=== PATIENT | male | born 1945 | race Caucasian/White ===

== ENCOUNTER 2018-01-21 14:24 | Observation (INO) | payer MEDICARE ==
[~2018-01-21] VITALS: Ht 182.9 cm; Wt 94.3 kg
[2018-01-21] MEDS ORDERED: SODIUM CHLORIDE 0.9% 500ML 500 ML IV STA ×2 (14:53→17:34)
[2018-01-21] MEDS ORDERED: SODIUM CHLORIDE 0.9% 250ML 500 ML ONE (15:36)
[2018-01-21 15:52] LABS: BASOPHILS % 0.3 % (0.0-1.0); EOSINOPHILS # (AUTO) 0.2 (0.0-0.4); EOSINOPHILS % 1.2 % (0.0-6.0); HEMATOCRIT 34.7 % (38.2-49.6); HEMOGLOBIN 11.1 g/dL (14.0-18.0); LYMPHOCYTES # (AUTO) 2.2 (1.0-3.2); LYMPHOCYTES % 18.4 % (18.0-39.1); MEAN CORPUSCULAR HEMOGLOBIN 28.2 pg (28-32); MEAN CORPUSCULAR VOLUME 88.1 fL (81-99); MONOCYTES # (AUTO) 0.8 (0.2-0.8); MONOCYTES % 6.5 % (4.4-11.3); NEUTROPHILS # (AUTO) 8.8 (2.1-6.9); NEUTROPHILS % 73.1 % (38.7-80.0); PLATELET COUNT 337 x10e3/uL (140-360); RED BLOOD COUNT 3.94 x10e6/uL (4.3-5.7); RED CELL DISTRIBUTION WIDTH 15.7 % (11.7-14.4)
[2018-01-21 16:09] LABS: ALANINE AMINOTRANSFERASE 14 IU/L (0-55); ALBUMIN 3.4 g/dL (3.5-5.0); ALKALINE PHOSPHATASE 54 IU/L (40-150); ANION GAP 13.5 mmol/L (8-16); BLOOD UREA NITROGEN 27 mg/dL (7-26); BUN/CREATININE RATIO 16 (6-25); CALCIUM 9.2 mg/dL (8.4-10.2); CARBON DIOXIDE 24 mmol/L (22-29); CHLORIDE 103 mmol/L (98-107); CREATINE KINASE 235 IU/L (30-200); CREATININE, SERUM 1.64 mg/dL (0.72-1.25); EST GLOMERULAR FILTRATION RATE 42 ML/MIN (60-); GLUCOSE 88 mg/dL (74-118); POTASSIUM 4.5 mmol/L (3.5-5.1); SODIUM 136 mmol/L (136-145)
--- NOTE | 2018-01-21 17:38 | Diagnostic Imaging Report ---
Examination: CT head without contrast Clinical Indication: Dizziness. Technique: Transaxial noncontrast images from the skull base through the vertex were obtained. Sagittal and coronal reformatted images were done. Comparison: None. Findings: Scalp: No abnormalities. Bones: Intact. No fractures. No blastic or lytic lesions. Brain sulci: Appropriate for patient's age. Ventricles: Normal in size and configuration. No hydrocephalus. . Extra-axial space: No abnormalities. Parenchyma: There are subtle confluent areas of low-attenuation within subcortical and periventricular white matter, nonspecific, but could represent microvascular ischemic disease. No masses, hemorrhage, or acute or chronic cortical based vascular insults. Suprasellar region: No abnormalities. Craniocervical junction: The foramen magnum is patent. No Chiari one malformation. Incidental findings: Atherosclerotic calcification of the cavernous and supraclinoid internal carotid and V4 segments of the bilateral vertebral arteries. Impression: 1. No acute intracranial finding. 2. Mild chronic microvascular ischemic change. Signed by: Dr. Randi Cerrato M.D. on 01/21/2018 5:35 PM
[2018-01-21] MEDS ORDERED: MECLIZINE HCL 12.5 MG TAB PO ONE (17:45)
[2018-01-21] MEDS ORDERED: ONDANSETRON HCL INJ 2 MG/ML VIAL IV PRN (19:30)
[2018-01-21] MEDS ORDERED: NITROGLYCERIN 0.4 MG SUBL SL PRN (19:30)
[2018-01-21] MEDS ORDERED: MORPHINE SULFATE 2 MG/ML SYR IV PRN (19:30)
[2018-01-21] MEDS ORDERED: ONDANSETRON HCL 4 MG ORAL DISINTEGRATING TAB PO PRN (19:45)
--- OUTSIDE RECORDS SUMMARY | 2018-01-21 20:30 | XMS REPORT ---
Author Author [facility] Address Unknown Phone Unavailable Care Team Providers Care Lining Ironer Name Role Phone LISA JESUS Unavailable Unavailable Problems This patient has no known problems. Allergies, Adverse Reactions, Alerts This patient has no known allergies or adverse reactions. Medications This patient has no known medications. Results Test Description Test Time Test Comments Text Results Atomic Results Result Comments CT BRAIN WO [address] [address] Patient Name: MARIA GUADALUPE WOODY MR #: [id number] : 1945 Age/Sex: 72/M Req #: [id number] Adm Physician: Ordered by: JANIS BARNETT MOTEL KEEPER Report #: [id number] Location: ER Room/Bed: Procedure: [id number] CT/CT BRAIN WO Exam Date: 01/21/18 Exam Time: 1634 REPORT STATUS: Signed Examination: CT head without contrast Clinical Indication: Dizziness. Technique: Transaxial noncontrast images from the skull base through the vertex were obtained. Sagittal and coronal reformatted images were done. Comparison: None. Findings: Scalp: No abnormalities. Bones: Intact. No fractures. No blastic or lytic lesions. Brain sulci: Appropriate for patient's age. Ventricles: Normal in size and configuration. No hydrocephalus. . Extra-axial space: No abnormalities. Parenchyma: There are subtle confluent areas of low- attenuation within subcortical and periventricular white matter, nonspecific, but could represent microvascular ischemic disease. No masses, hemorrhage, or acute or chronic cortical based vascular insults. Suprasellar region: No abnormalities. Craniocervical junction: The foramen magnum is patent. No Chiari one malformation. Incidental findings: Atherosclerotic calcification of the cavernous and supraclinoid internal carotid and V4 segments of the bilateral vertebral arteries. Impression: 1. No acute intracranial finding. 2. Mild chronic microvascular ischemic change. Signed by: Dr. Randi Cerrato M.D. on 01/21/2018 5:35 PM Dictated By: RANDI LATIF MD [id number] Transcribed By: RONEL on 01/21/18 1737 COPY TO: JANIS BARNETT NP
[2018-01-21] MEDS: FAMOTIDINE 20 MG TAB PO SCH (20:54)
[2018-01-22] VITALS (9 sets, daily range): BP systolic 109–169; BP diastolic 67–96
[2018-01-22 01:52] LABS: CREATINE KINASE 182 IU/L (30-200)
[2018-01-22 06:53] LABS: BASOPHILS # (AUTO) 0.1 (0.0-0.1); BASOPHILS % 0.4 % (0.0-1.0); EOSINOPHILS # (AUTO) 0.2 (0.0-0.4); HEMATOCRIT 33.4 % (38.2-49.6); HEMOGLOBIN 10.9 g/dL (14.0-18.0); LYMPHOCYTES % 17.5 % (18.0-39.1); MEAN CORPUSCULAR HEMOGLOBIN 28.7 pg (28-32); MEAN CORPUSCULAR HGB CONC 32.6 g/dL (31-35); MEAN CORPUSCULAR VOLUME 87.9 fL (81-99); MONOCYTES # (AUTO) 0.9 (0.2-0.8); MONOCYTES % 7.5 % (4.4-11.3); NEUTROPHILS # (AUTO) 8.4 (2.1-6.9); NEUTROPHILS % 72.1 % (38.7-80.0); PLATELET COUNT 296 x10e3/uL (140-360); RED CELL DISTRIBUTION WIDTH 15.8 % (11.7-14.4)
[2018-01-22 07:08] LABS: CALCIUM 9.2 mg/dL (8.4-10.2); CHOL/HDL RATIO 3.2 (3.9-4.7); CREATININE, SERUM 1.41 mg/dL (0.72-1.25)
[2018-01-22 07:35] LABS: CREATINE KINASE 167 IU/L (30-200)
[2018-01-22] MEDS: FAMOTIDINE 20 MG TAB PO SCH ×2 (08:08→16:45)
[2018-01-22] MEDS ORDERED: ASPIRIN 81 MG ENTERIC COATED PO SCH (09:00)
[2018-01-22] MEDS ORDERED: ASPIRIN CHEW81 MG PO (09:49)
[2018-01-22] MEDS ORDERED: LISINOPRIL10 MG PO (09:49)
[2018-01-22] MEDS ORDERED: fenofibrate PO (09:49)
[2018-01-22] MEDS ORDERED: CRESTOR20 MG PO (09:49)
[2018-01-22] MEDS ORDERED: METOPROLOL SUCC25 MG PO (09:49)
[2018-01-22] MEDS: SODIUM CHLORIDE 0.9% 1000ML 1,000 ML IV SCH (10:45)
[2018-01-22] MEDS ORDERED: GUAIFENESIN/DEXTROMETHORPHAN LIQD 5 ML UDC PO PRN (11:15)
[2018-01-22 11:20] LABS: FERRITIN 22.03 ng/mL (21.81-274.66)
[2018-01-22] MEDS: METOPROLOL SUCCINATE 25 MG TAB XL PO SCH (12:00)
--- NOTE | 2018-01-22 12:41 | Consultation ---
DATE OF CONSULTATION: January 22, 2018 CARDIOLOGY CONSULTATION ATTENDING PHYSICIAN: Dr. Grijalva Thank you so much for asking me to see this nice man again in consultation. Mr. Lowry is a charming, 72-year-old man known to me from past and previous evaluations. CHIEF COMPLAINT: He presented to the emergency room with a complaint of coughing and "almost passing out." HISTORY OF PRESENT ILLNESS: The patient reports that he has been ill for the last couple of weeks. He saw his family doctor, Dr. Nagy, and was given steroids and antibiotics and a cough medicine, but reports the cough did not go away and now he feels like he might pass out when he coughs. He reports that by the office scales he lost as much as 11 pounds over a 2-week illness but then he thinks he gained about 8 pounds back. He thinks he might not have been eating and drinking as well as before. PAST MEDICAL HISTORY: Significant for prostate cancer treated with radiation therapy. He finished up treatments about 5 years ago and now has annual visits. He has longstanding hypertension and hyperlipidemia. He had cardiac catheterization in 2005 that showed mild calcific 2-vessel coronary artery disease with about 30% stenosis in the right coronary and 30% stenosis with calcium in the LAD, performed February 12, 2006. LV function was normal at that time. He had tonsillectomy at age 6. MEDICATIONS: His recent home medications have been: 1. Crestor 20 mg daily. 2. Fenofibrate 160 mg daily. 3. Metoprolol succinate 25 mg daily. 4. Lisinopril 20 mg daily. 5. Aspirin 81 mg daily. PERSONAL AND SOCIAL HISTORY: Patient continues to smoke, now smoking cigars. He has been smoking since his teenage years. FAMILY HISTORY: Father of prostate cancer. Mother at 69 of myocardial infarction. He has a half-brother that had an UT at age 50. REVIEW OF SYSTEMS: Cardiac: He denies any recent chest pain or palpitations. PHYSICAL EXAMINATION VITALS: Blood pressure 140/80. GENERAL: Exam at this time shows a pleasant, alert man who is comfortable and talkative. HEENT: Relatively unremarkable. NECK: No jugular venous distention. No bruits. THORAX: Heart sounds S1 and S2 are equal. No murmurs. Lungs are clear to exam. ABDOMEN: Protuberant. Liver is palpable below the right sternal border. There is no other organomegaly or bruits. EXTREMITIES: No cyanosis, clubbing or edema. LABS: Initial BUN and creatinine are 27 and 1.64. AST and ALT are normal. Troponins are normal times 3. Albumin is slightly low at 3.4. Hemoglobin is low at 11.1, repeat 10.9. Serum iron is normal. Total cholesterol 161, LDL 86, HDL 51. Vitamin B12 is normal. CAT scan of head suggests possible microvascular changes, but no chest x-ray has been performed. His EKG is unremarkable. ASSESSMENT 1. Cough. 2. Cough syncope or near syncope. 3. Known coronary disease. 4. Hypertension. 5. Hyperlipidemia. 6. History of prostate cancer. 7. Hepatomegaly. PLAN: Will check echocardiogram to exclude pericardial effusion. Await chest x-ray and plan Cardiolite for re-evaluation of coronary disease. Thank for asking me to see him in consultation. Job#: [id number]
--- NOTE | 2018-01-22 16:44 | Diagnostic Imaging Report ---
PROCEDURE: Frontal and lateral views of the chest. COMPARISON: None. INDICATIONS: COUG, BRONCHITIS FINDINGS: Lines/tubes: None. Lungs: The lungs are well inflated and clear. There is no evidence of pneumonia or pulmonary edema. Pleura: There is no pleural effusion or pneumothorax. Heart and mediastinum: The heart and the mediastinum are normal. Bones: No acute bony abnormality. IMPRESSION: 1. No acute cardiopulmonary disease. Dictated by: Lenin Rodriguez M.D. on 01/22/2018 at 16:45 Electronically approved by: Lenin Rodriguez M.D. on 01/22/2018 at 16:45
[2018-01-23] VITALS (7 sets, daily range): BP systolic 95–157; BP diastolic 60–88
[2018-01-23] MEDS: SODIUM CHLORIDE 0.9% 1000ML 1,000 ML IV SCH ×2 (00:41→13:25)
[2018-01-23 06:40] LABS: BASOPHILS % 0.3 % (0.0-1.0); EOSINOPHILS # (AUTO) 0.2 (0.0-0.4); HEMATOCRIT 35.1 % (38.2-49.6); HEMOGLOBIN 11.5 g/dL (14.0-18.0); LYMPHOCYTES # (AUTO) 1.8 (1.0-3.2); MEAN CORPUSCULAR HEMOGLOBIN 28.8 pg (28-32); MEAN CORPUSCULAR HGB CONC 32.8 g/dL (31-35); MONOCYTES # (AUTO) 0.9 (0.2-0.8); MONOCYTES % 7.9 % (4.4-11.3); NEUTROPHILS # (AUTO) 8.9 (2.1-6.9); NEUTROPHILS % 74.5 % (38.7-80.0); PLATELET COUNT 302 x10e3/uL (140-360); RED BLOOD COUNT 3.99 x10e6/uL (4.3-5.7); RED CELL DISTRIBUTION WIDTH 15.7 % (11.7-14.4); RETICULOCYTE % 1.4 % (0.8-2.2)
[2018-01-23 07:06] LABS: ANION GAP 12.4 mmol/L (8-16); BLOOD UREA NITROGEN 18 mg/dL (7-26); BUN/CREATININE RATIO 15 (6-25); CALCIUM 9.5 mg/dL (8.4-10.2); CARBON DIOXIDE 24 mmol/L (22-29); CHLORIDE 105 mmol/L (98-107); CREATININE, SERUM 1.17 mg/dL (0.72-1.25); EST GLOMERULAR FILTRATION RATE > 60 ML/MIN (60-); GLUCOSE 88 mg/dL (74-118); POTASSIUM 4.4 mmol/L (3.5-5.1); SODIUM 137 mmol/L (136-145)
[2018-01-23] MEDS ORDERED: ASPIRIN 81 MG CHEW TAB PO SCH (09:00)
[2018-01-23] MEDS ORDERED: REGADENOSON 0.4 MG/5 ML SYR IV ONE (09:23)
[2018-01-23] MEDS: FAMOTIDINE 20 MG TAB PO SCH ×2 (12:14→16:39)
[2018-01-23] MEDS: METOPROLOL SUCCINATE 25 MG TAB XL PO SCH (12:15)
== END 2018-01-23 18:24 | disposition home or self-care (01) ==
LOC: ER 14:24 → ERHOLD 20:28 → IMCU 01-22 00:35
PROVIDERS: ADMIT Internal Medicine; ATTEND Internal Medicine
DX: R55 Syncope and collapse (principal); R42 Dizziness and giddiness; J40 Bronchitis, not specified as acute or chronic; D64.9 Anemia, unspecified; I25.10 Atherosclerotic heart disease of native coronary artery without angina pectoris; I10 Essential (primary) hypertension; E78.5 Hyperlipidemia, unspecified; Z85.46 Personal history of malignant neoplasm of prostate; R16.0 Hepatomegaly, not elsewhere classified
CPT/HCPCS: 36415 ×3; 70450; 71046; 78452; 80048 ×2; 80053; 80061; 82550 ×2; 82553 ×2; 82607; 82728; 83540; 84466; 84484 ×2; 85025 ×3; 85045; 85379; 93005; 93306; 99284; A9502; G0378 ×3; J7030 ×2; J7040; J7050

== ENCOUNTER → 2018-08-28 | Day surgery (SDC) | payer MEDICARE, OTHER ==
[2018-08-18 15:44] LABS: BASOPHILS % 0.3 % (0.0-1.0); EOSINOPHILS # (AUTO) 0.7 (0.0-0.4); EOSINOPHILS % 5.7 % (0.0-6.0); HEMATOCRIT 31.7 % (38.2-49.6); LYMPHOCYTES # (AUTO) 2.6 (1.0-3.2); LYMPHOCYTES % 22.3 % (18.0-39.1); MEAN CORPUSCULAR HEMOGLOBIN 26.8 pg (28-32); MEAN CORPUSCULAR HGB CONC 31.5 g/dL (31-35); MONOCYTES # (AUTO) 0.8 (0.2-0.8); NEUTROPHILS # (AUTO) 7.4 (2.1-6.9); NEUTROPHILS % 64.4 % (38.7-80.0); PLATELET COUNT 343 x10e3/uL (140-360); RED BLOOD COUNT 3.73 x10e6/uL (4.3-5.7); RED CELL DISTRIBUTION WIDTH 15.5 % (11.7-14.4)
[2018-08-18 16:03] LABS: ANION GAP 13.8 mmol/L (8-16); CALCIUM 9.5 mg/dL (8.4-10.2); CREATININE, SERUM 1.34 mg/dL (0.72-1.25); POTASSIUM 4.8 mmol/L (3.5-5.1)
[~2018-08-28] MED LIST: AMILORIDE HCL5 MG PO; ASPIRIN CHEW81 MG PO; CHONDR SU A NA/HYALUR SOD 1 EACH KIT IO ONE; CRESTOR20 MG PO; CYCLOPENTOLATE HCL 1% OPTH SOLN 2ML BTL ONE; EPINEPHRINE HCL INJ 1 MG/ML AMP ONE; FENTANYL CITRATE/PF 100MCG/2 ML INJ ONE; GATIFLOXACIN(OPTH) 5 ML LIQD ONE; LIDOCAINE 2%/ EPINEPHRINE 20ML MDV ONE; LIDOCAINE HCL-PF 4% 40 MG/1 ML 5ML AMP ONE; LISINOPRIL10 MG PO; METOPROLOL SUCC25 MG PO; MIDAZOLAM HCL 2 MG/2 ML VIAL ONE; PHENYLEPHRINE HCL 2 ML DROPS ONE; PILOCARPINE HCL(OPTH) 15 ML LIQD ONE; POVIDONE IODINE 5% (OPTH) 30 ML BTL ONE; PROPOFOL IV EMULSION 10 MG/ML 20 ML VIAL ONE; TOBRAMYCIN/DEXAMETHASONE(OPTH) 3.5 GM TUBE ONE; fenofibrate PO
--- OUTSIDE RECORDS SUMMARY | 2018-08-28 05:53 | XMS REPORT ---
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
--- OUTSIDE RECORDS SUMMARY | 2018-08-28 05:53 | XMS REPORT ---
Author Author Andrew Ford Organization [employer] Address Unknown Phone Unavailable Care Team Providers Care Chaser Apprentice Name Role Phone Andrew Ford CP Unavailable Allergies, Adverse Reactions, Alerts Substance Reaction Event Type N.K.D.A. 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 Active Assessment CAD without angina I25.10 Active Problem Carotid stenosis 433.10 Active Assessment CHF, chronic systolic & diastolic I50.42 Active Medications Medication Code System Code Instructions Start Date End Date Status Dosage [facility] [address]-80 5 MG Orally Once a day Active 1 tablet Toprol XL [facility] 25250349153 25 Orally Once a day Active 1 tablet Fenofibrate [facility] [address]-13 160 MG Orally Once a day Active 1 tablet with a meal Anne Aspirin EC Low Dose [facility] [address]-96 81 MG Orally Once a day Active 1 tablet Crestor [facility] [address]-54 20 Orally Once a day Active 1 tablet Social History Social History Element Qualifiers Date Reported Tobacco Use: . Are you a: current smoker 1PPD FOR 50 YEARS February 15, 2016 Do you drink alcohol? . Status: Yes, Type: Beer February 15, 2016 Vital Signs Date/Time: February 15, 2016 Blood Pressure Systolic 145 mm Hg Weight 205 lbs Cardiac Monitoring Heart Rate 59 /min Blood Pressure Diastolic 60 mm Hg Summary Purpose [employer] Submission
--- OUTSIDE RECORDS SUMMARY | 2018-08-28 05:53 | XMS REPORT ---
Author Author Andrew Ford [facility] [employer] Address Unknown Phone Unavailable Care Team Providers Care Gut Sorter Name Role Phone Andrew Ford CP Unavailable Allergies, Adverse Reactions, Alerts Substance Reaction Event Type N.K.D.A. Info Not Available Non Drug Allergy Problems Problem Type Condition Code Onset Dates Condition Status Assessment Abnormal ECG R94.31 Active Assessment Occlusion and stenosis of right carotid artery I65.21 Active Assessment CAD without angina I25.10 Active Assessment Hypertensive heart disease with heart failure I11.0 Active Problem Abnormal ECG R94.31 Active Problem Occlusion and stenosis of right carotid artery I65.21 Active Problem Hypertensive heart disease with heart failure I11.0 Active Problem Carotid stenosis 433.10 Active Assessment CHF, chronic systolic & diastolic I50.42 Active Problem CAD without angina I25.10 Active Problem CHF, chronic systolic & diastolic I50.42 Active Medications Medication Code System Code Instructions Start Date End Date Status Dosage Metoprolol Succinate ER [facility] 46217425552 25 MG Orally Once a day Active 1 tablet Lisinopril [facility] 03145985624 20 mg Orally Once a day Aug 05, 2017 Active 1 tablet Toprol XL [facility] 10088900294 25 Orally Once a day Active 1 tablet Lisinopril [facility] 21735620523 5 Active TAKE 1 TABLET BY MOUTH ONCE DAILY Fenofibrate ND 44128000145 160 MG Orally Once a day Active 1 tablet with a meal Lisinopril ND 14080908005 10 MG Orally Once a day Aug 07, 2016 Inactive 1 tablet Rosuvastatin Calcium ND 69593372448 20 MG Orally Once a day Active 1 tablet Crestor [facility] [address]-62 20 Orally Once a day Active 1 tablet Aspirin ND 61806710258 81 MG Orally Once a day Active 1 tablet Lisinopril ND 05328777979 10 MG Orally Once a day Inactive 1 tablet Vital Signs Date/Time: Aug 05, 2017 BMI 27.94 Index Weight 206 lbs Height 6ft 0in in Cardiac Monitoring Heart Rate 64 /min Blood Pressure Diastolic 87 mm Hg Blood Pressure Systolic 150 mm Hg Results No Known Results Summary Purpose [employer] Submission
--- OUTSIDE RECORDS SUMMARY | 2018-08-28 05:53 | XMS REPORT | Continuity of Care Document ---
Author Author [facility] Interface Address Unknown Phone Unavailable Problems Problem Status Onset Date Classification Date Reported Comments Source CHF, chronic systolic & diastolic Active Diagnosis 10/16/2017 Nathan Haley MD, [place] Occlusion and stenosis of right carotid artery Active Diagnosis 10/16/2017 Nathan Haley MD, ROXANA Abnormal ECG Active Diagnosis 10/16/2017 Nathan Haley MD, PA CAD without angina Active Diagnosis 10/16/2017 Nathan Haley MD, PA Carotid stenosis Active Problem 10/16/2017 Nathan Haley MD, ROXANA Hypertensive heart disease with heart failure Active Diagnosis 10/16/2017 Nathan Haley MD, PA Pure hypercholesterolemia Active Diagnosis 10/18/2016 Nathan Haley MD, PA Cardiomyopathy, unspecified Active Diagnosis 10/18/2016 Nathan Haley MD, PA Medications Medication Details Route Status Patient Instructions Ordering Provider Order Date Source Lisinopril 10 Mg Tablet, 20 Mg Oral Daily Active 01/23/2018 [facility] Lisinopril 1 tablet Orally Active 20 mg Orally Once a day 08/05/2017 Nathan Haley MD, ROXANA Anne Aspirin EC Low Dose 1 tablet Orally Active 81 MG Orally Once a day 08/02/2017 Nathan Haley MD, ROXANA Lisinopril 1 tablet Orally Active 10 MG Orally Once a day Ne 08/07/2016 Nathan Haley MD, ROXANA Lisinopril 1 tablet Orally Active 10 MG Orally Once a day 08/07/2016 Nathan Haley MD, ROX[place] Metoprolol Succinate ER 1 tablet Orally Active 25 MG Orally Once a day Liliana Haley MD, PA Toprol XL 1 tablet Orally Active 25 Orally Once a day Liliana Haley MD, PA Lisinopril TAKE 1 TABLET BY MOUTH ONCE DAILY NA Active 5 Liliana Haley MD, PA Fenofibrate 1 tablet with a meal Orally Active 160 MG Orally Once a day Liliana Haley MD, PA Rosuvastatin Calcium 1 tablet Orally Active 20 MG Orally Once a day Liliana Haley MD, PA Crestor 1 tablet Orally Active 20 Orally Once a day Liliana Haley MD, PA Aspirin 1 tablet Orally Active 81 MG Orally Once a day Liliaan Haley MD, PA Lisinopril 1 tablet Orally Active 10 MG Orally Once a day Liliana Haley MD, PA Lisinopril 1 tablet Orally Active 5 MG Orally Once a day Liliana Haley MD, PA Fenofibrate 1 tablet with a meal Orally Active 160 MG Orally Once a day Liliana Haley MD, PA Anne Aspirin EC Low Dose 1 tablet Orally Active 81 MG Orally Once a day Liliana Haley MD, PA Metoprolol Succinate ER 1 tablet Orally Active 25 MG Orally Once a day Liliana Haley MD, PA Aspirin (Aspirin Chew) 81 Mg Chew Daily Active [facility] Fenofibrate Bedtime Active [facility] Metoprolol Succinate 25 Mg Tab.er.24h Daily Active [facility] Rosuvastatin Calcium (Crestor) 20 Mg Tablet Bedtime Active [facility] Allergies, Adverse Reactions, Alerts Substance Category Reaction Severity Reaction type Status Date Reported Comments Source N.K.D.A. Adverse Reaction Info Not Available Adverse Reaction Active 08/05/2017 Nathan Haley MD, PA Immunizations Immunization Date Given Site Status Last Updated Comments Source Results Order Name Results Value Reference Range Date Interpretation Comments Source Automated blood basophil count (count/volume) Automated blood basophil count (count/volume) 0.0 0.0 - 0.1 01/23/2018 [facility] Automated blood basophil count as percentage of total leukocytes Automated blood basophil count as percentage of total leukocytes 0.3 0.0 - 1.0 01/23/2018 [facility] Automated blood eosinophil count Automated blood eosinophil count 0.2 0.0 - 0.4 01/23/2018 [facility] Automated blood eosinophil count as percentage of total leukocytes Automated blood eosinophil count as percentage of total leukocytes 2.0 0.0 - 6.0 01/23/2018 [facility] Automated blood hematocrit (volume fraction) Automated blood hematocrit (volume fraction) 35.1 38.2 - 49.6 01/23/2018 [facility] Automated blood lymphocyte count as percentage ot total leukocytes Automated blood lymphocyte count as percentage ot total leukocytes 15.0 18.0 - 39.1 01/23/2018 [facility] Automated blood monocyte count as percentage of total leukocytes Automated blood monocyte count as percentage of total leukocytes 7.9 4.4 - 11.3 01/23/2018 [facility] Automated blood neutrophil count Automated blood neutrophil count 8.9 2.1 - 6.9 01/23/2018 [facility] Automated blood platelet count (count/volume) Automated blood platelet count (count/volume) 302 140 - 360 01/23/2018 [facility] Automated blood segmented neutrophil count as percentage of total leukocytes Automated blood segmented neutrophil count as percentage of total leukocytes 74.5 38.7 - 80.0 01/23/2018 [facility] Automated erythrocyte mean corpuscular hemoglobin (mass per erythrocyte) Automated erythrocyte mean corpuscular hemoglobin (mass per erythrocyte) 28.8 28 - 32 01/23/2018 [facility] Automated erythrocyte mean corpuscular hemoglobin concentration measurement (mass/volume) Automated erythrocyte mean corpuscular hemoglobin concentration measurement (mass/volume) 32.8 31 - 35 01/23/2018 [facility] Automated erythrocyte mean corpuscular volume Automated erythrocyte mean corpuscular volume 88.0 81 - 99 01/23/2018 [facility] Automated reticulocyte count as percentage of total erythrocytes Automated reticulocyte count as percentage of total erythrocytes 1.4 0.8 - 2.2 01/23/2018 [facility] Blood erythrocytes automated count (number/volume) Blood erythrocytes automated count (number/volume) 3.99 4.3 - 5.7 01/23/2018 [facility] Blood hemoglobin measurement (moles/volume) Blood hemoglobin measurement (moles/volume) 11.5 14.0 - 18.0 01/23/2018 [facility] Blood leukocytes automated count (number/volume) Blood leukocytes automated count (number/volume) 11.97 4.8 - 10.8 01/23/2018 [facility] Blood lymphocytes count (number/volume) Blood lymphocytes count (number/volume) 1.8 1.0 - 3.2 01/23/2018 [facility] Blood monocytes automated count (number/volume) Blood monocytes automated count (number/volume) 0.9 0.2 - 0.8 01/23/2018 [facility] Estimated glomerular filtration rate (GFR) determination Estimated glomerular filtration rate (GFR) determination null 60 01/23/2018 [facility] Glucose measurement Glucose measurement 88 74 - 118 01/23/2018 [facility] Serum or plasma anion gap Serum or plasma anion gap 12.4 8 - 16 01/23/2018 [facility] Serum or plasma calcium measurement (mass/volume) Serum or plasma calcium measurement (mass/volume) 9.5 8.4 - 10.2 01/23/2018 [facility] Serum or plasma carbon dioxide, total measurement (moles/volume) Serum or plasma carbon dioxide, total measurement (moles/volume) 24 22 - 29 01/23/2018 [facility] Serum or plasma chloride measurement (moles/volume) Serum or plasma chloride measurement (moles/volume) 105 98 - 107 01/23/2018 [facility] Serum or plasma creatinine measurement (mass/volume) Serum or plasma creatinine measurement (mass/volume) 1.17 0.72 - 1.25 01/23/2018 [facility] Serum or plasma potassium measurement (moles/volume) Serum or plasma potassium measurement (moles/volume) 4.4 3.5 - 5.1 01/23/2018 [facility] Serum or plasma sodium measurement (moles/volume) Serum or plasma sodium measurement (moles/volume) 137 136 - 145 01/23/2018 [facility] Serum or plasma urea nitrogen measurement (mass/volume) Serum or plasma urea nitrogen measurement (mass/volume) 18 7 - 26 01/23/2018 [facility] Serum or plasma urea nitrogen/creatinine mass ratio Serum or plasma urea nitrogen/creatinine mass ratio 15 6 - 25 01/23/2018 [facility] Red Cell Distribution Width 15.7 11.7 - 14.4 01/23/2018 [facility] IM GRANULOCYTES % 0.3 0.0 - 1.0 01/23/2018 [facility] Absolute Immature Granulocyte (auto 0.04 0 - 0.1 01/23/2018 [facility] Blood cobalamin (vitamin B12) measurement (mass/volume) Blood cobalamin (vitamin B12) measurement (mass/volume) 328 213 - 816 01/22/2018 [facility] Fibrin D-dimer DDU measurement in platelet poor plasma (mass/volume) Fibrin D-dimer DDU measurement in platelet poor plasma (mass/volume) 0.40 0.00 - 0.45 01/22/2018 [facility] Serum or plasma cholesterol in HDL measurement (mass/volume) Serum or plasma cholesterol in HDL measurement (mass/volume) 51 40 - 60 01/22/2018 [facility] Serum or plasma cholesterol in LDL measurement (mass/volume) Serum or plasma cholesterol in LDL measurement (mass/volume) 86 60 - 130 01/22/2018 [facility] Serum or plasma cholesterol measurement (mass/volume) Serum or plasma cholesterol measurement (mass/volume) 161 0 - 199 01/22/2018 [facility] Serum or plasma creatine kinase MB measurement (mass/volume) Serum or plasma creatine kinase MB measurement (mass/volume) 1.60 0 - 5.0 01/22/2018 [facility] Serum or plasma creatine kinase measurement (enzymatic activity/volume) Serum or plasma creatine kinase measurement (enzymatic activity/volume) 167 30 - 200 01/22/2018 [facility] Serum or plasma ferritin measurement (mass/volume) Serum or plasma ferritin measurement (mass/volume) 22.03 21.81 - 274.66 01/22/2018 [facility] Serum or plasma iron binding capacity measurement (mass/volume) Serum or plasma iron binding capacity measurement (mass/volume) 440 261 - 478 01/22/2018 [facility] Serum or plasma iron measurement (mass/volume) Serum or plasma iron measurement (mass/volume) 125 65 - 175 01/22/2018 [facility] Serum or plasma iron saturation measurement (mass fraction) Serum or plasma iron saturation measurement (mass fraction) 28 15 - 50 01/22/2018 [facility] Serum or plasma total cholesterol/cholesterol in HDL mass ratio Serum or plasma total cholesterol/cholesterol in HDL mass ratio 3.2 3.9 - 4.7 01/22/2018 [facility] Serum or plasma transferrin measurement (mass/volume) Serum or plasma transferrin measurement (mass/volume) 314 174 - 364 01/22/2018 [facility] Serum or plasma triglyceride measurement (mass/volume) Serum or plasma triglyceride measurement (mass/volume) 121 0 - 149 01/22/2018 [facility] Troponin I measurement by highly sensitive enzyme immunoassay Troponin I measurement by highly sensitive enzyme immunoassay null 0 - 0.300 01/22/2018 [facility] Plasma globulin measurement (mass/volume) Plasma globulin measurement (mass/volume) 3.5 2.3 - 3.5 01/21/2018 [facility] Serum or plasma alanine aminotransferase measurement (enzymatic activity/volume) Serum or plasma alanine aminotransferase measurement (enzymatic activity/volume) 14 0 - 55 01/21/2018 [facility] Serum or plasma albumin measurement (mass/volume) Serum or plasma albumin measurement (mass/volume) 3.4 3.5 - 5.0 01/21/2018 [facility] Serum or plasma albumin/globulin mass ratio Serum or plasma albumin/globulin mass ratio 1.0 0.8 - 2.0 01/21/2018 [facility] Serum or plasma alkaline phosphatase measurement (enzymatic activity/volume) Serum or plasma alkaline phosphatase measurement (enzymatic activity/volume) 54 40 - 150 01/21/2018 [facility] Serum or plasma protein measurement (mass/volume) Serum or plasma protein measurement (mass/volume) 6.9 6.5 - 8.1 01/21/2018 [facility] Serum or plasma total bilirubin measurement (mass/volume) Serum or plasma total bilirubin measurement (mass/volume) 0.3 0.2 - 1.2 01/21/2018 [facility] Aspartate Amino Transf (AST/SGOT) 20 5 - 34 01/21/2018 [facility] Vital Signs Vital Sign Value Date Comments Source Weight 206 08/05/2017 Nathan Haley MD, PA Heart Rate 64 08/05/2017 Nathan Haley MD, [place] Diastolic (mm Hg) 87 08/05/2017 Nathan Haley MD, [place] Systolic (mm Hg) 150 08/05/2017 Nathan Haley MD, PA Weight 210 08/07/2016 Nathan Haley MD, PA Heart Rate 65 08/07/2016 Nathan Haley MD, PA Diastolic (mm Hg) 81 08/07/2016 Nathan Haley MD, PA Systolic (mm Hg) 153 08/07/2016 Nathan Haley MD, PA Systolic (mm Hg) 145 02/15/2016 Nathan Haley MD, PA Weight 205 02/15/2016 Nathan Haley MD, PA Heart Rate 59 02/15/2016 Nathan Haley MD, PA Diastolic (mm Hg) 60 02/15/2016 Nathan Haley MD, PA Encounters Location Location Details Encounter Type Encounter Number Reason For Visit Attending Provider ADM Date DC Date Status Source Nathan Haley MD, PA Follow-Up [id number] 02/15/2016 02/15/2016 Nathan Haley MD, PA Nathan Haley MD, PA Follow-Up [id number] 02/15/2016 02/15/2016 Nathan Haley MD, PA Nathan Haley MD, PA Follow-Up [id number] 02/15/2016 02/15/2016 Nathan Haley MD, PA Nathan Haley MD, PA echo/carotid/arterial dopplers [id number] 08/02/2016 08/02/2016 Nathan Haley MD, PA Nathan Haley MD, PA echo/carotid/arterial dopplers [id number] 08/02/2016 08/02/2016 Nathan Haley MD, PA Nathan Haley MD, PA Follow-Up [id number] 08/07/2016 08/07/2016 Nathan Haley MD, PA Discharged Inpatient (obs) [id number] BLANCA UREÑA MD 01/21/2018 01/23/2018 [facility] Procedures Procedure Code Date Perfomer Comments Source X-ray of chest, two views [id number] 01/22/2018 [facility] [place] Computed tomography of brain without radiopaque contrast [id number] 01/21/2018 [facility]
--- OUTSIDE RECORDS SUMMARY | 2018-08-28 05:53 | XMS REPORT ---
Author Author Andrew Ford Organization [employer] Address Unknown Phone Unavailable Care Team Providers Care Linen Attendant Name Role Phone Andrew Ford CP Unavailable Encounters Encounter Location Date Follow-Up Nathan Haley MD, PA February 15, 2016 echo/carotid/arterial dopplers Nathan Haley MD, PA Aug 02, 2016 Problems Problem Type Condition ICD-9 Code Onset Dates Condition Status Problem CAD without angina I25.10 Active Problem CHF, chronic systolic & diastolic I50.42 Active Problem Occlusion and stenosis of right carotid artery I65.21 Active Problem Carotid stenosis 433.10 Active Social History Social History Element Qualifiers Date Reported Tobacco Use: . Are you a: current smoker 1PPD FOR 50 YEARS February 15, 2016 Do you drink alcohol? . Status: Yes, Type: Beer February 15, 2016 Summary Purpose [employer] Submission
--- OUTSIDE RECORDS SUMMARY | 2018-08-28 05:53 | XMS REPORT ---
Author Author Andrew Ford [facility] [employer] Address Unknown Phone Unavailable Care Team Providers Care Senior Systems Administrator Name Role Phone Andrew Ford CP Unavailable Allergies, Adverse Reactions, Alerts Substance Reaction Event Type N.K.D.A. Info Not Available Non Drug Allergy Encounters Encounter Location Date Follow-Up Nathan Haley MD, PA February 15, 2016 echo/carotid/arterial dopplers Nathan Haley MD, PA Aug 02, 2016 Follow-Up Nathan Haley MD, PA Aug 07, 2016 Problems Problem Type Condition ICD-9 Code Onset Dates Condition Status Assessment Cardiomyopathy, unspecified I42.9 Active Assessment CAD without angina I25.10 Active Assessment Pure hypercholesterolemia E78.0 Active Assessment Abnormal ECG R94.31 Active Problem Occlusion and stenosis of right carotid artery I65.21 Active Problem CAD without angina I25.10 Active Problem Abnormal ECG R94.31 Active Assessment CHF, chronic systolic & diastolic I50.42 Active Assessment Occlusion and stenosis of right carotid artery I65.21 Active Problem CHF, chronic systolic & diastolic I50.42 Active Problem Carotid stenosis 433.10 Active Medications Medication Code System Code Instructions Start Date End Date Status Dosage Lisinopril [facility] [address]-76 5 MG Orally Once a day Active 1 tablet Crestor [facility] [address]-89 20 Orally Once a day Active 1 tablet Metoprolol Succinate ER [facility] [address]-65 25 MG Orally Once a day Active 1 tablet Toprol XL [facility] 24992770918 25 Orally Once a day Active 1 tablet Lisinopril [facility] [address]-04 10 MG Orally Once a day Aug 07, 2016 Active 1 tablet Anne Aspirin EC Low Dose [facility] [address]-71 81 MG Orally Once a day Aug 02, 2017 Active 1 tablet Fenofibrate [facility] [address]-98 160 MG Orally Once a day Active 1 tablet with a meal Social History Social History Element Qualifiers Date Reported Tobacco Use: . Are you a: current smoker 1PPD FOR 50 YEARS Aug 07, 2016 Do you drink alcohol? . Status: Yes, Type: Beer Aug 07, 2016 Vital Signs Date/Time: Aug 07, 2016 Weight 210 lbs Cardiac Monitoring Heart Rate 65 /min Blood Pressure Diastolic 81 mm Hg Blood Pressure Systolic 153 mm Hg Summary Purpose [employer] Submission
[2018-08-28 09:00] VITALS: BP 157/88
== END | disposition home or self-care (01) ==
LOC: OR 05:50
PROVIDERS: ATTEND Ophthalmology
DX: H25.11 Age-related nuclear cataract, right eye (principal); I10 Essential (primary) hypertension; E78.5 Hyperlipidemia, unspecified; R00.1 Bradycardia, unspecified; F17.210 Nicotine dependence, cigarettes, uncomplicated; Z01.810 Encounter for preprocedural cardiovascular examination; Z01.812 Encounter for preprocedural laboratory examination; Z79.82 Long term (current) use of aspirin
CPT/HCPCS: 36415; 66982; 80048; 85025; 93005; J0171; J2001; J2250; J2704; V2632

== ENCOUNTER 2018-11-23 22:44 | Emergency (ER) | payer MEDICARE, OTHER ==
[~2018-11-23] VITALS: Ht 182.9 cm; Wt 94.3 kg
[~2018-11-23 22:44] MED LIST changes: -CHONDR SU A NA/HYALUR SOD 1 EACH KIT IO ONE; -CYCLOPENTOLATE HCL 1% OPTH SOLN 2ML BTL ONE; -EPINEPHRINE HCL INJ 1 MG/ML AMP ONE; -FENTANYL CITRATE/PF 100MCG/2 ML INJ ONE; -GATIFLOXACIN(OPTH) 5 ML LIQD ONE; -LIDOCAINE 2%/ EPINEPHRINE 20ML MDV ONE; -LIDOCAINE HCL-PF 4% 40 MG/1 ML 5ML AMP ONE; -MIDAZOLAM HCL 2 MG/2 ML VIAL ONE; -PHENYLEPHRINE HCL 2 ML DROPS ONE; -PILOCARPINE HCL(OPTH) 15 ML LIQD ONE; -POVIDONE IODINE 5% (OPTH) 30 ML BTL ONE; -PROPOFOL IV EMULSION 10 MG/ML 20 ML VIAL ONE; -TOBRAMYCIN/DEXAMETHASONE(OPTH) 3.5 GM TUBE ONE
--- OUTSIDE RECORDS SUMMARY | 2018-11-23 22:47 | XMS REPORT ---
Author Author Andrew Ford [facility] [employer] Address Unknown Phone Unavailable Care Team Providers Care Supervisor Title Name Role Phone Andrew Ford CP Unavailable Allergies, Adverse Reactions, Alerts Substance Reaction Event Type N.K.D.A. Info Not Available Non Drug Allergy Problems Problem Type Condition Code Onset Dates Condition Status Assessment CHF, chronic systolic & diastolic I50.42 Active Assessment Preoperative cardiac clearance Z01.810 Active Problem Hypertensive heart disease with heart failure I11.0 Active Problem Abnormal ECG R94.31 Active Problem Preoperative cardiac clearance Z01.810 Active Problem CHF, chronic systolic & diastolic I50.42 Active Problem Carotid stenosis 433.10 Active Problem Occlusion and stenosis of right carotid artery I65.21 Active Problem CAD without angina I25.10 Active Assessment Hypertensive heart disease with heart failure I11.0 Active Assessment Abnormal ECG R94.31 Active Assessment CAD without angina I25.10 Active Assessment Occlusion and stenosis of right carotid artery I65.21 Active Medications Medication Code System Code Instructions Start Date End Date Status Dosage Rosuvastatin Calcium [facility] N[facility] 97552677859 20 Orally Once a day Active 1 tablet Amiloride HCl [facility] NAMED [facility] 64973969125 5 MG Orally Once a day Active 1 tablet Metoprolol Succinate ER [facility] NAMED [facility] 86002462219 25 MG Active 1 TABLET ONCE A DAY ORALLY 90 DAYS Lisinopril [facility] NAMED [facility] 54771667548 20 mg Orally Once a day Aug 05, 2017 Active 1 tablet Metoprolol Succinate ER [facility] NAMED [facility] 87041412326 25 MG Orally Once a day Active 1 tablet Lisinopril [facility] NAMED [facility] 14542435728 20 Orally Once a day Active 1 tablet Aspirin [facility] NAMED [facility] 96031282218 81 MG Orally Once a day Active 1 tablet Crestor [facility] NAMED [facility] [address]-04 20 Orally Once a day Active 1 tablet Toprol XL [facility] NAMED [facility] 42517844730 25 Orally Once a day Active 1 tablet Rosuvastatin Calcium [facility] NAMED [facility] 83432780437 20 MG Orally Once a day Active 1 tablet Fenofibrate [facility] NAMED [facility] 94392758122 160 MG Active 1 TABLET WITH A MEAL ONCE A DAY ORALLY 90 DAYS Lisinopril [facility] NAMED [facility] 77716738716 5 Active TAKE 1 TABLET BY MOUTH ONCE DAILY Vital Signs Date/Time: Nov 11, 2018 BMI 28.21 Index Weight 208 lbs Height 6ft 0in in Cardiac Monitoring Heart Rate 58 /min Blood Pressure Diastolic 71 mm Hg Blood Pressure Systolic 150 mm Hg Results No Known Results Summary Purpose [employer] Submission
--- OUTSIDE RECORDS SUMMARY | 2018-11-23 22:47 | XMS REPORT ---
Author Author Andrew Ford Organization [employer] Address Unknown Phone Unavailable Care Team Providers Care Webmethods Consultant Name Role Phone Andrew Ford CP Unavailable Allergies No Known Allergies Problems Problem Type Condition Code Onset Dates Condition Status Problem Abnormal ECG R94.31 Active Problem Occlusion and stenosis of right carotid artery I65.21 Active Problem Hypertensive heart disease with heart failure I11.0 Active Problem Carotid stenosis 433.10 Active Problem CAD without angina I25.10 Active Problem CHF, chronic systolic & diastolic I50.42 Active Medications No Known Medications Results No Known Results Summary Purpose [employer] Submission
--- OUTSIDE RECORDS SUMMARY | 2018-11-23 22:47 | XMS REPORT | Continuity of Care Document ---
Author Author [facility] Interface Address Unknown Phone Unavailable Problems Problem Status Onset Date Classification Date Reported Comments Source CHF, chronic systolic & diastolic Active Diagnosis 11/14/2018 Nathan Haley MD, PA Occlusion and stenosis of right carotid artery Active Problem 11/14/2018 Nathan Haley MD, [place] Abnormal ECG Active Problem 11/14/2018 Nathan Haley MD, PA CAD without angina Active Problem 11/14/2018 Nathan Haley MD, PA Carotid stenosis Active Problem 11/14/2018 Natahn Haley MD, [place]OX[place] Hypertensive heart disease with heart failure Active Problem 11/14/2018 Nathan Haley MD, [place] Pure hypercholesterolemia Active Diagnosis 10/18/2016 Nathan Haley MD, PA Cardiomyopathy, unspecified Active Diagnosis 10/18/2016 Nathan Haley MD, PA Preoperative cardiac clearance Active Diagnosis 11/14/2018 Nathan Haley MD, PA Medications Medication Details Route Status Patient Instructions Ordering Provider Order Date Source Lisinopril 10 Mg Tablet, 20 Mg Oral Daily Active 01/23/2018 [facility] Lisinopril 1 tablet Orally Active 20 mg Orally Once a day Hi 08/05/2017 Nathan Haley MD, PA Anne Aspirin EC Low Dose 1 tablet Orally Active 81 MG Orally Once a day 08/02/2017 Nathan Haley MD, [place] Lisinopril 1 tablet Orally Active 10 MG Orally Once a day Hi 08/07/2016 Nathan Haley MD, PA Lisinopril 1 tablet Orally Active 10 MG Orally Once a day cris 08/07/2016 Nathan Haley MD, PA Metoprolol Succinate ER 1 tablet Orally Active 25 MG Orally Once a day Liliana Haley MD, PA Toprol XL 1 tablet Orally Active 25 Orally Once a day Liliana Haley MD, [place] Lisinopril TAKE 1 TABLET BY MOUTH ONCE DAILY NA Active 5 Liliana Haley MD, PA Fenofibrate 1 TABLET WITH A MEAL ONCE A DAY ORALLY 90 DAYS NA Active 160 MG Liliana Haley MD, PA Rosuvastatin Calcium 1 tablet Orally Active 20 Orally Once [...] Once a day Liliana Haley MD, PA Amiloride HCl 1 tablet Orally Active 5 MG Orally Once a day Liliana Haley MD, PA Metoprolol Succinate ER 1 TABLET ONCE A DAY ORALLY 90 DAYS NA Active 25 MG Liliana Haley MD, PA Rosuvastatin Calcium TAKE 1 TABLET BY MOUTH EVERY DAY NA Active 20 Liliana Haley MD, PA Metoprolol Succinate ER 1 tablet Orally Active 25 MG Orally Once a day Liliana Haley MD, PA Lisinopril 1 tablet Orally Active 20 Orally Once a day Liliana Haley MD, PA Aspirin (Aspirin Chew) 81 Mg Chew Daily Active [facility] Fenofibrate Bedtime Active [facility] Metoprolol Succinate 25 Mg Tab.er.24h Daily Active [facility] Rosuvastatin Calcium (Crestor) 20 Mg Tablet Bedtime Active [facility] Allergies, Adverse Reactions, Alerts Substance Category Reaction Severity Reaction type Status Date Reported Comments Source N.K.D.A. Adverse Reaction Info Not Available Adverse Reaction Active 11/11/2018 Nahtan Haley MD, PA Immunizations Immunization Date Given Site Status Last Updated Comments Source Results Order Name Results Value Reference Range Date Interpretation Comments Source Automated blood basophil count (count/volume) Automated blood basophil count (count/volume) 0.0 0.0 - 0.1 01/23/2018 [facility] Automated blood basophil count as percentage of total leukocytes Automated blood basophil count as percentage of total leukocytes 0.3 0.0 - 1.0 01/23/2018 [facility] Automated blood eosinophil count Automated blood eosinophil count 0.2 0.0 - 0.4 01/23/2018 [facility] Automated blood eosinophil count as percentage of total leukocytes Automated blood eosinophil count as percentage of total leukocytes 2.0 0.0 - 6.0 01/23/2018 [facility] Automated blood hematocrit (volume fraction) Automated blood hematocrit (volume fraction) 35.1 38.2 - 49.6 01/23/2018 [facility] Automated blood lymphocyte count as percentage ot total leukocytes Automated blood lymphocyte count as percentage ot total leukocytes 15.0 18.0 - 39.1 01/23/2018 [facility] Automated blood monocyte count as percentage of total leukocytes Automated blood monocyte count as percentage of total leukocytes 7.9 4.4 - 11.3 01/23/2018 [facility] Automated blood neutrophil count Automated blood neutrophil count 8.9 2.1 - 6.9 01/23/2018 [facility] Automated blood platelet count (count/volume) Automated blood platelet count (count/volume) 302 140 - 360 01/23/2018 [facility] Automated blood segmented neutrophil count as percentage of total leukocytes Automated blood segmented neutrophil count as percentage of total leukocytes 74.5 38.7 - 80.0 01/23/2018 [facility] Automated erythrocyte mean corpuscular hemoglobin (mass per erythrocyte) Automated erythrocyte mean corpuscular hemoglobin (mass per erythrocyte) 28.8 28 - 32 01/23/2018 [facility] Automated erythrocyte mean corpuscular hemoglobin concentration measurement (mass/volume) Automated erythrocyte mean corpuscular hemoglobin concentration measurement (mass/volume) 32.8 31 - 35 01/23/2018 [facility] Automated erythrocyte mean corpuscular volume Automated erythrocyte mean corpuscular volume 88.0 81 - 99 01/23/2018 [facility] Automated reticulocyte count as percentage of total erythrocytes Automated reticulocyte count as percentage of total erythrocytes 1.4 0.8 - 2.2 01/23/2018 [facility] Blood erythrocytes automated count (number/volume) Blood erythrocytes automated count (number/volume) 3.99 4.3 - 5.7 01/23/2018 [facility] Blood hemoglobin measurement (moles/volume) Blood hemoglobin measurement (moles/volume) 11.5 14.0 - 18.0 01/23/2018 [facility] Blood leukocytes automated count (number/volume) Blood leukocytes automated count (number/volume) 11.97 4.8 - 10.8 01/23/2018 [facility] Blood lymphocytes count (number/volume) Blood lymphocytes count (number/volume) 1.8 1.0 - 3.2 01/23/2018 [facility] Blood monocytes automated count (number/volume) Blood monocytes automated count (number/volume) 0.9 0.2 - 0.8 01/23/2018 [facility] Estimated glomerular filtration rate (GFR) determination Estimated glomerular filtration rate (GFR) determination null 60 01/23/2018 [facility] Glucose measurement Glucose measurement 88 74 - 118 01/23/2018 [facility] Serum or plasma anion gap Serum or plasma anion gap 12.4 8 - 16 01/23/2018 [facility] Serum or plasma calcium measurement (mass/volume) Serum or plasma calcium measurement (mass/volume) 9.5 8.4 - 10.2 01/23/2018 [facility] Serum or plasma carbon dioxide, total measurement (moles/volume) Serum or plasma carbon dioxide, total measurement (moles/volume) 24 22 - 29 01/23/2018 [facility] Serum or plasma chloride measurement (moles/volume) Serum or plasma chloride measurement (moles/volume) 105 98 - 107 01/23/2018 [facility] Serum or plasma creatinine measurement (mass/volume) Serum or plasma creatinine measurement (mass/volume) 1.17 0.72 - 1.25 01/23/2018 [facility] Serum or plasma potassium measurement (moles/volume) Serum or plasma potassium measurement (moles/volume) 4.4 3.5 - 5.1 01/23/2018 [facility] Serum or plasma sodium measurement (moles/volume) Serum or plasma sodium measurement (moles/volume) 137 136 - 145 01/23/2018 [facility] Serum or plasma urea nitrogen measurement (mass/volume) Serum or plasma urea nitrogen measurement (mass/volume) 18 7 - 26 01/23/2018 [facility] Serum or plasma urea nitrogen/creatinine mass ratio Serum or plasma urea nitrogen/creatinine mass ratio 15 6 - 25 01/23/2018 [facility] Red Cell Distribution Width 15.7 11.7 - 14.4 01/23/2018 [facility] IM GRANULOCYTES % 0.3 0.0 - 1.0 01/23/2018 [facility] Absolute Immature Granulocyte (auto 0.04 0 - 0.1 01/23/2018 [facility] Blood cobalamin (vitamin B12) measurement (mass/volume) Blood cobalamin (vitamin B12) measurement (mass/volume) 328 213 - 816 01/22/2018 [facility] Fibrin D-dimer DDU measurement in platelet poor plasma (mass/volume) Fibrin D-dimer DDU measurement in platelet poor plasma (mass/volume) 0.40 0.00 - 0.45 01/22/2018 [facility] Serum or plasma cholesterol in HDL measurement (mass/volume) Serum or plasma cholesterol in HDL measurement (mass/volume) 51 40 - 60 01/22/2018 [facility] Serum or plasma cholesterol in LDL measurement (mass/volume) Serum or plasma cholesterol in LDL measurement (mass/volume) 86 60 - 130 01/22/2018 [facility] Serum or plasma cholesterol measurement (mass/volume) Serum or plasma cholesterol measurement (mass/volume) 161 0 - 199 01/22/2018 [facility] Serum or plasma creatine kinase MB measurement (mass/volume) Serum or plasma creatine kinase MB measurement (mass/volume) 1.60 0 - 5.0 01/22/2018 [facility] Serum or plasma creatine kinase measurement (enzymatic activity/volume) Serum or plasma creatine kinase measurement (enzymatic activity/volume) 167 30 - 200 01/22/2018 [facility] Serum or plasma ferritin measurement (mass/volume) Serum or plasma ferritin measurement (mass/volume) 22.03 21.81 - 274.66 01/22/2018 [facility] Serum or plasma iron binding capacity measurement (mass/volume) Serum or plasma iron binding capacity measurement (mass/volume) 440 261 - 478 01/22/2018 [facility] Serum or plasma iron measurement (mass/volume) Serum or plasma iron measurement (mass/volume) 125 65 - 175 01/22/2018 [facility] Serum or plasma iron saturation measurement (mass fraction) Serum or plasma iron saturation measurement (mass fraction) 28 15 - 50 01/22/2018 [facility] Serum or plasma total cholesterol/cholesterol in HDL mass ratio Serum or plasma total cholesterol/cholesterol in HDL mass ratio 3.2 3.9 - 4.7 01/22/2018 [facility] Serum or plasma transferrin measurement (mass/volume) Serum or plasma transferrin measurement (mass/volume) 314 174 - 364 01/22/2018 [facility] Serum or plasma triglyceride measurement (mass/volume) Serum or plasma triglyceride measurement (mass/volume) 121 0 - 149 01/22/2018 [facility] Troponin I measurement by highly sensitive enzyme immunoassay Troponin I measurement by highly sensitive enzyme immunoassay null 0 - 0.300 01/22/2018 [facility] Plasma globulin measurement (mass/volume) Plasma globulin measurement (mass/volume) 3.5 2.3 - 3.5 01/21/2018 [facility] Serum or plasma alanine aminotransferase measurement (enzymatic activity/volume) Serum or plasma alanine aminotransferase measurement (enzymatic activity/volume) 14 0 - 55 01/21/2018 [facility] Serum or plasma albumin measurement (mass/volume) Serum or plasma albumin measurement (mass/volume) 3.4 3.5 - 5.0 01/21/2018 [facility] Serum or plasma albumin/globulin mass ratio Serum or plasma albumin/globulin mass ratio 1.0 0.8 - 2.0 01/21/2018 [facility] Serum or plasma alkaline phosphatase measurement (enzymatic activity/volume) Serum or plasma alkaline phosphatase measurement (enzymatic activity/volume) 54 40 - 150 01/21/2018 [facility] Serum or plasma protein measurement (mass/volume) Serum or plasma protein measurement (mass/volume) 6.9 6.5 - 8.1 01/21/2018 [facility] Serum or plasma total bilirubin measurement (mass/volume) Serum or plasma total bilirubin measurement (mass/volume) 0.3 0.2 - 1.2 01/21/2018 [facility] Aspartate Amino Transf (AST/SGOT) 20 5 - 34 01/21/2018 [facility] Vital Signs Vital Sign Value Date Comments Source Weight 208 11/11/2018 Nathan Haley MD, PA Heart Rate 58 11/11/2018 Nathan Haley MD, PA Diastolic (mm Hg) 71 11/11/2018 Nathan Haley MD, PA Systolic (mm Hg) 150 11/11/2018 Nathan Haley MD, PA Weight 200 08/05/2018 Nathan Haley MD, PA Heart Rate 60 08/05/2018 Nathan Haley MD, PA Diastolic (mm Hg) 80 08/05/2018 Nathan Haley MD, PA Systolic (mm Hg) 141 08/05/2018 Nathan Haley MD, PA Weight 206 08/05/2017 Nathan Haley MD, PA [...] Status Source Nathan Haley MD, PA Follow-Up [id number] 02/15/2016 02/15/2016 Nathan Haley MD, PA Nathan Haley MD, PA Follow-Up [id number] 02/15/2016 02/15/2016 Nathan Haley MD, PA Nathan Haley MD, PA Follow-Up [id number] 02/15/2016 02/15/2016 Nathan Haley MD, PA Nathan Haley MD, PA echo/carotid/arterial dopplers [id number] 08/02/2016 08/02/2016 Nathan Haley MD, PA Nathan Haley MD, PA echo/carotid/arterial dopplers [id number] 08/02/2016 08/02/2016 Nathan Haley MD, PA Nathan Haley MD, PA Follow-Up [id number] 08/07/2016 08/07/2016 Nathan Haley MD, PA Discharged Inpatient (obs) [id number] BLANCA UREÑA MD 01/21/2018 01/23/2018 [facility] Procedures Procedure Code Date Perfomer Comments Source X-ray of chest, two views [id number] 01/22/2018 [facility] Computed tomography of brain without radiopaque contrast [id number] 01/21/2018 [facility]
--- OUTSIDE RECORDS SUMMARY | 2018-11-23 22:47 | XMS REPORT ---
Author Author Andrew Ford [facility] e[employer] Address Unknown Phone Unavailable Care Team Providers Care Kindergarten Aide Name Role Phone Andrew Ford CP Unavailable Allergies, Adverse Reactions, Alerts Substance Reaction Event Type N.K.D.A. Info Not Available Non Drug Allergy Problems Problem Type Condition Code Onset Dates Condition Status Assessment CAD without angina I25.10 Active Assessment CHF, chronic systolic & diastolic I50.42 Active Assessment Occlusion and stenosis of right carotid artery I65.21 Active Assessment Hypertensive heart disease with heart failure I11.0 Active Assessment Abnormal ECG R94.31 Active Problem Abnormal ECG R94.31 Active Problem Occlusion and stenosis of right carotid artery I65.21 Active Problem Hypertensive heart disease with heart failure I11.0 Active Problem Carotid stenosis 433.10 Active Problem CAD without angina I25.10 Active Problem CHF, chronic systolic & diastolic I50.42 Active Medications Medication Code System Code Instructions Start Date End Date Status Dosage Amiloride HCl [facility] 92384653827 5 MG Orally Once a day Active 1 tablet Aspirin [facility] 50031764535 81 MG Orally Once a day Active 1 tablet Crestor [facility] [address]-97 20 Orally Once a day Active 1 tablet Lisinopril [facility] 13084140716 5 Active TAKE 1 TABLET BY MOUTH ONCE DAILY Metoprolol Succinate ER [facility] 74247580791 25 MG Active 1 TABLET ONCE A DAY ORALLY 90 DAYS Fenofibrate ND 73496674147 160 MG Active 1 TABLET WITH A MEAL ONCE A DAY ORALLY 90 DAYS Lisinopril [facility] 49050586784 20 mg Orally Once a day Aug 05, 2017 Active 1 tablet Rosuvastatin Calcium [facility] 72245325409 20 MG Orally Once a day Active 1 tablet Toprol XL ND 90991397884 25 Orally Once a day Active 1 tablet Metoprolol Succinate ER ND 51156028704 25 MG Orally Once a day Active 1 tablet Rosuvastatin Calcium [facility] 02980467394 20 Active TAKE 1 TABLET BY MOUTH EVERY DAY Vital Signs Date/Time: Aug 05, 2018 BMI 27.12 Index Weight 200 lbs Height 6ft 0in in Cardiac Monitoring Heart Rate 60 /min Blood Pressure Diastolic 80 mm Hg Blood Pressure Systolic 141 mm Hg Results No Known Results Summary Purpose eClinicalWorks Submission
[2018-11-23 23:30] LABS: BASOPHILS % 0.2 % (0.0-1.0); EOSINOPHILS # (AUTO) 0.4 (0.0-0.4); EOSINOPHILS % 2.9 % (0.0-6.0); HEMOGLOBIN 12.4 g/dL (14.0-18.0); LYMPHOCYTES # (AUTO) 1.4 (1.0-3.2); LYMPHOCYTES % 11.8 % (18.0-39.1); MEAN CORPUSCULAR HEMOGLOBIN 28.6 pg (28-32); MEAN CORPUSCULAR HGB CONC 31.8 g/dL (31-35); MEAN CORPUSCULAR VOLUME 90.1 fL (81-99); MONOCYTES # (AUTO) 0.9 (0.2-0.8); MONOCYTES % 7.9 % (4.4-11.3); NEUTROPHILS # (AUTO) 9.2 (2.1-6.9); NEUTROPHILS % 76.9 % (38.7-80.0); PLATELET COUNT 339 x10e3/uL (140-360); RED BLOOD COUNT 4.33 x10e6/uL (4.3-5.7); RED CELL DISTRIBUTION WIDTH 15.7 % (11.7-14.4)
--- NOTE | 2018-11-23 23:30 | NUR ---
straight cath performed per orders. straight cath performed using sterile technique. 150cc slightly cloudy urine drained. informed.
[2018-11-23] MEDS ORDERED: DIATRIZOATE MEGL/DIATRIZOA SOD 30 ML BTL PO ONE (23:38)
[2018-11-23 23:43] LABS: ALBUMIN 3.5 g/dL (3.5-5.0); ANION GAP 12.9 mmol/L (8-16); CALCIUM 9.9 mg/dL (8.4-10.2); CREATININE, SERUM 1.45 mg/dL (0.72-1.25); POTASSIUM 3.9 mmol/L (3.5-5.1)
[2018-11-23 23:45] LABS: BILIRUBIN,URINE NEGATIVE (NEGATIVE); CLARITY,URINE SL CLOUDY (CLEAR); COLOR,URINE YELLOW (YELLOW); KETONES,URINE NEGATIVE (NEGATIVE); LEUKOCYTE ESTERASE ,URINE NEGATIVE (NEGATIVE); NITRITE,URINE NEGATIVE (NEGATIVE); PROTEIN,URINE DIPSTICK NEGATIVE (NEGATIVE); URINE UROBILINOGEN 0.2 mg/dL (0.2 - 1)
[2018-11-24 00:09] LABS: BACTERIA,URINE FEW /HPF; EPITHELIAL CELLS,URINE FEW /LPF; RBC,URINE 21-50 /HPF (0-5); WBC,URINE (MAN) 21-50 /HPF (0-5)
[2018-11-24] MEDS ORDERED: ONDANSETRON HCL INJ 2MG/ML 2ML 2 MG/ML VIAL IV STA (00:38)
--- NOTE | 2018-11-24 00:38 | NUR ---
pt started vomiting after starting oral contrast. dr murray informed. zofran ordered, administered at this time.
--- NOTE | 2018-11-24 01:40 | Diagnostic Imaging Report ---
EXAM: CT Abdomen and Pelvis WITHOUT contrast INDICATION: ABD PAIN, S/P COLON RESECTION SATURDAY COMPARISON: None. TECHNIQUE: Abdomen and pelvis were scanned utilizing a multidetector helical scanner from the lung base to the pubic symphysis without administration of IV contrast. Coronal and sagittal reformations were obtained. Routine protocol was performed. IV CONTRAST: None ORAL CONTRAST: Gastrografin COMPLICATIONS: None RADIATION DOSE: Total DLP: 707.1 mGy*cm Estimated effective dose: (DLP x 0.015 x size factor) mSv Dose modulation, iterative reconstruction, and/or weight based adjustment of the mA/kV was utilized to reduce the radiation dose to as low as reasonably achievable. FINDINGS: Absence of intravenous contrast decreases sensitivity for detection of focal lesions and vascular pathology. LINES and TUBES: None. LOWER THORAX: Unremarkable HEPATOBILIARY: No focal hepatic lesions. No biliary ductal dilation. GALLBLADDER: Not visualized SPLEEN: No splenomegaly. PANCREAS: No focal masses or ductal dilatation. ADRENALS: No adrenal nodules KIDNEYS/URETERS: No hydronephrosis. Left renal 2.4 cm cyst No stones. GI TRACT: Dilated loops of small bowel without transition. Status post right hemicolectomy. The ileocolonic anastomosis is intact and patent (coronal image 24). PELVIC ORGANS/BLADDER: Unremarkable. LYMPH NODES: No lymphadenopathy. VESSELS: There is severe atherosclerotic disease in the aorta and major arterial branches. PERITONEUM / RETROPERITONEUM: Scattered foci of free air. Amount of air not unexpected given timing of recent surgery. Small amount of free fluid in pelvis BONES: Unremarkable. SOFT TISSUES: Unremarkable. IMPRESSION: Dilated loops of small bowel may represent ileus or developing partial small bowel obstruction. Signed by: DR. Maksim Steen MD on 11/24/2018 1:37 AM
[2018-11-24] MEDS ORDERED: CEFTRIAXONE SOD 1 GM/NS 50 ML 50 ML IV ONE (02:00)
--- NOTE | 2018-11-24 02:35 | NUR ---
16 FR NGT INSERTED TO LEFT NARE PER MD ORDERS. PLACDEMENT VERIFIED BY AUSCULTATION. NGT CONNECTED TO SUCTION. 975CC DARK GREEN COLORED FLUID NOTED IN SUCTION CANISTER.
--- NOTE | 2018-11-24 03:41 | NUR ---
TRANSFER INITIATED TO [facility] PER DR. ANDRES REQUEST, SPOKE TO DEUCE AT ,
--- NOTE | 2018-11-24 05:26 | NUR ---
ATTEMPTED TO CALL REPORT TO MARY KATE. NURSE UNABLE TO TAKE REPORT AT THIS TIME.
[2018-11-24 06:11] VITALS: BP 124/62
== END 2018-11-24 06:16 | disposition short-term general hospital (02) ==
LOC: ER 22:44
DX: R10.84 Generalized abdominal pain (principal); R11.2 Nausea with vomiting, unspecified; N30.91 Cystitis, unspecified with hematuria; K56.1 Intussusception; I10 Essential (primary) hypertension; E78.5 Hyperlipidemia, unspecified; D64.9 Anemia, unspecified; Z85.038 Personal history of other malignant neoplasm of large intestine
CPT/HCPCS: 36415; 74176; 80053; 81001; 82150; 85025; 96374; 99284; J0696; J2405